=== PATIENT | male | born 1975 | race Caucasian/White ===

== ENCOUNTER → 2018-02-22 | Outpatient (CLI) | payer BC ==
--- NOTE | 2018-02-22 15:22 | RADIOLOGY REPORT (SQ) ---
EXAM DESCRIPTION: FOOT RIGHT COMPLETE COMPLETED DATE/TIME: 02/22/2018 3:13 pm REASON FOR STUDY: PAIN IN RIGHT TOE(S) M79.674 PAIN IN RIGHT TOE(S) COMPARISON: None. NUMBER OF VIEWS: Three views. TECHNIQUE: AP, lateral and oblique without weight bearing radiographic images acquired of the right foot. LIMITATIONS: None. FINDINGS: MINERALIZATION: Normal. BONES: No acute fracture or dislocation. No worrisome bone lesions. No significant osteophytes. JOINTS: No erosions. No bettie-articular osteopenia. No chondrocalcinosis. SOFT TISSUES: No swelling. No calcifications. OTHER: No other significant finding. IMPRESSION: NEGATIVE STUDY OF THE RIGHT FOOT. NO EXPLANATION FOR PAIN. TECHNICAL DOCUMENTATION: JOB ID: [id number] [employer]- All Rights Reserved Reading location - IP/workstation name: [email or web address]
== END ==
LOC: OD 15:00
PROVIDERS: ATTEND Family Medicine
DX: M79.674 Pain in right toe(s) (principal)

== ENCOUNTER 2019-03-03 23:30 | Emergency (ER) | payer BC ==
[2019-03-04] MEDS ORDERED: ASPIRIN 81 MG TABLET, CHEWABLE PO ONE (00:28)
--- NOTE | 2019-03-04 01:55 | RADIOLOGY REPORT (SQ) ---
EXAM DESCRIPTION: XR CHEST 2 VIEWS COMPLETED DATE/TME: 03/04/2019 00:00 CLINICAL HISTORY: 43 years, Male, cp COMPARISON: None. NUMBER OF VIEWS: Two TECHNIQUE: Two-view PA and lateral of the chest were obtained. LIMITATIONS: None. FINDINGS: Unremarkable cardiac and mediastinal silhouette. Heart size is normal. Lungs are clear without focal opacity, pneumothorax or pleural effusions. The visualized bones are within normal limits. IMPRESSION: No acute cardiopulmonary abnormalities. copyright 2010 [employer]- All Rights Reserved
[2019-03-04 02:19] LABS: ABSOLUTE BASOPHILS # (AUTO) 0.1 10^3/uL (0.0-0.2); ABSOLUTE EOSINOPHILS # (AUTO) 0.2 10^3/uL (0.0-0.6); ABSOLUTE LYMPHOCYTES (AUTO) 2.1 10^3/uL (0.5-4.7); ABSOLUTE MONOCYTES (AUTO) 0.7 10^3/uL (0.1-1.4); ABSOLUTE NEUT (AUTO) 3.8 10^3/uL (1.7-8.2); BASOPHILS % (AUTO) 0.9 % (0-2); EOSINOPHILS % (AUTO) 2.9 % (0-6); HEMATOCRIT 41.7 % (37.9-51.0); HEMOGLOBIN 14.1 g/dL (13.5-17.0); LYMPHOCYTES % (AUTO) 30.6 % (13-45); MEAN CORPUSCULAR HEMOGLOBIN 27.9 pg (27.0-33.4); MEAN CORPUSCULAR HGB CONC 33.7 g/dL (32.0-36.0); MEAN CORPUSCULAR VOLUME 83 fl (80-97); MONOCYTES % (AUTO) 10.2 % (3-13); PLATELET COUNT 286 10^3/uL (150-450); RED BLOOD COUNT 5.03 10^6/uL (4.35-5.55); RED CELL DISTRIBUTION WIDTH 13.6 % (11.5-14.0); SEGMENTED NEUTROPHILS % (AUTO) 55.4 % (42-78); TOTAL CELLS COUNTED % (AUTO) 100 %; WHITE BLOOD COUNT 6.9 10^3/uL (4.0-10.5)
--- NOTE | 2019-03-04 02:23 | ER Document Report ---
ED General - General Chief Complaint: Chest Pain Stated Complaint: CHEST PRESSURE Time Seen by Provider: 03/04/19 02:00 Primary Care Provider: MAXWELL KEYS DO [Primary Care Provider] - Follow up as needed Notes: Patient is a 43-year-old male that comes emergency department for chief complaint of pains in his chest, he states that it started 1 week ago when he had a run of palpitations, he states that since then he has noticed some developing soreness in the left side of his chest, this did not resolve and has progressed, tonight it was much more noticeable and he could not sleep. Pain is reproduced with movement. He denies nausea or vomiting, fever or chills. He has had a cough intermittently but this is nonproductive and he denies shortness of breath except when trying to take a deep breath he has some extra pain. Cough is resolving. He denies injury. 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 He denies any recent travel, swelling of the lower extremities, recent surgery. TRAVEL OUTSIDE OF THE [place] IN LAST 30 DAYS: No - Related Data Allergies/Adverse Reactions: Iodinated Contrast Media Allergy (Severe, Verified 01/27/19 09:32) Past Medical History - General Information source: Patient - Social History Smoking Status: Never Smoker Frequency of alcohol use: None Drug Abuse: None Lives with: Family Family History: Reviewed & Not Pertinent Patient has suicidal ideation: No Patient has homicidal ideation: No - Past Medical History Cardiac Medical History: Reports: Hx Heart Attack Denies: Hx Coronary Artery Disease, Hx Hypertension Pulmonary Medical History: Denies: Hx Asthma, Hx Bronchitis, Hx COPD, Hx Pneumonia Neurological Medical History: Denies: Hx Cerebrovascular Accident Musculoskeletal Medical History: Denies Hx Arthritis Past Surgical History: Reports: Other - Tumor removed from the bladder - Immunizations Hx Diphtheria, Pertussis, Tetanus Vaccination: Yes Review of Systems - Review of Systems Constitutional: No symptoms reported EENT: No symptoms reported Cardiovascular: See HPI Respiratory: See HPI Gastrointestinal: No symptoms reported Genitourinary: No symptoms reported Male Genitourinary: No symptoms reported Musculoskeletal: See HPI Skin: No symptoms reported Hematologic/Lymphatic: No symptoms reported Neurological/Psychological: No symptoms reported Physical Exam - Vital signs Vitals: Temp Pulse Resp BP Pulse Ox 97.9 F 71 18 139/96 H 97 03/03/19 23:53 03/03/19 23:53 03/03/19 23:53 03/03/19 23:53 03/03/19 23:53 - Notes Notes: GENERAL: Alert, interacts well. No acute distress. HEAD: Normocephalic, atraumatic. EYES: Pupils equal, round, and reactive to light. Extraocular movements intact. ENT: Oral mucosa moist, tongue midline. Oropharynx unremarkable. Airway patent. NECK: Full range of motion. Supple. Trachea midline. LUNGS: Clear to auscultation bilaterally, no wheezes, rales, or rhonchi. No respiratory distress. Tender over the left pectoral muscle especially over the lateral aspect. Very reproducible. Worse with range of motion of the arm and shoulder. No abnormal erythema, induration, fluctuance, crepitus. HEART: Regular rate and rhythm. No murmur ABDOMEN: Soft, non-tender. Non-distended. EXTREMITIES: Moves all 4 extremities spontaneously. No edema, normal radial and dorsalis pedis pulses bilaterally. No cyanosis. BACK: no cervical, thoracic, lumbar midline tenderness. No saddle anesthesia, normal distal neurovascular exam. Moves all extremities in full range of motion. NEUROLOGICAL: Alert and oriented x3. Normal speech. Cranial nerves II through XII grossly intact. PSYCH: Normal affect, normal mood. SKIN: Warm, dry, normal turgor. No rashes or lesions noted. Course - Re-evaluation Re-evalutation: Patient is alert and well-appearing. EKG unremarkable, chest x-ray unremarkable, CBC, chemistry, troponin all negative despite patient reporting symptoms for 1 week. Patient has obvious palpable tenderness over the left pectoral muscle extending towards the axilla, this is worsened with range of motion of the left arm and shoulder as well. In addition to this patient has some pain with deep breaths. Because of the pleuritic pain and occasional cough which is improving and almost resolved I suspect he has some component of pleurisy as well. He is not tachycardic, hypoxic, he has no lower extremity swelling, no reported risk factors for PE, PERC criteria negative. I did discuss the possibility of blood clot with patient, work-up with this was deferred. Patient is very pleased with his work-up, patient was given dexamethasone for suspected pleurisy component, he has Robaxin at home that he will be using already, discussed expectations, follow-up, and return precautions. Patient states understanding and agreement. Stable at time of discharge. - Vital Signs Vital signs: Temp Pulse Resp BP Pulse Ox 97.9 F 75 16 134/85 H 98 03/04/19 03:59 03/04/19 03:59 03/04/19 03:59 03/04/19 03:59 03/04/19 03:59 - Laboratory Result Diagrams: 03/04/19 02:00 03/04/19 02:00 Laboratory results interpreted by me: 03/04/19 02:00 Creatine Kinase 41 L - EKG Interpretation by Me Additional EKG results interpreted by me: EKG shows sinus rhythm at a rate of 79, QTc 432, normal axis, no T wave inversions or ST segment changes in consecutive leads. Discharge - Discharge Clinical Impression: Chest wall pain Chest pain Qualifiers: Chest pain type: unspecified Qualified Code(s): R07.9 - Chest pain, unspecified Condition: Stable Disposition: HOME, SELF-CARE Additional Instructions: Your work-up is reassuring and no concerning abnormality is seen. Your exam, symptoms, and work-up are most suggestive of both chest wall pain along your left pectoralis muscle and also probably pleurisy. You have been medicated for this, symptoms should gradually improve, apply heat to your chest wall on the left side, you can take [id number] anti- inflammatories and/or Robaxin as well. This should gradually resolve. Follow-up with primary care. Come back if you are worse including difficulty breathing, fever, passing out, severe worsening pain, or any other concerning symptoms. Forms: Return to Work Referrals: MAXWELL KEYS DO [Primary Care Provider] - Follow up as needed
[2019-03-04 02:39] LABS: ALBUMIN 4.3 g/dL (3.5-5.0); ALKALINE PHOSPHATASE 74 U/L (38-126); ANION GAP 10 (5-19); ASPARTATE AMINO TRANSFERASE 37 U/L (17-59); BILIRUBIN,DIRECT 0.1 mg/dL (0.0-0.4); BILIRUBIN,TOTAL 0.5 mg/dL (0.2-1.3); BLOOD UREA NITROGEN 14 mg/dL (7-20); CALCIUM 9.2 mg/dL (8.4-10.2); CARBON DIOXIDE 23 mmol/L (22-30); CHLORIDE 104 mmol/L (98-107); CREATINE KINASE 41 U/L (55-170); GLUCOSE 109 mg/dL (75-110); TOTAL PROTEIN 7.2 g/dL (6.3-8.2)
[2019-03-04 02:51] LABS: CREATINE KINASE MB 0.37 ng/mL (<4.55)
[2019-03-04 02:53] LABS: TROPONIN I < 0.012 ng/mL
[2019-03-04] MEDS ORDERED: ASPIRIN 81 MG TABLET, CHEWABLE ONE (03:21)
[2019-03-04] MEDS ORDERED: DEXAMETHASONE SOD PHOS INJ 10 MG/1 ML VIAL IM ONE (03:36)
[2019-03-04 04:01] VITALS: BP 134/85
--- NOTE | 2019-03-04 08:12 | EKG REPORT ---
SEVERITY:- NORMAL ECG - SINUS RHYTHM : Confirmed by: Tessie Pablo MD 04-Mar-2019 08:11:50
== END 2019-03-04 04:00 | disposition home or self-care (01) ==
LOC: ER 23:30
DX: R07.9 Chest pain, unspecified (principal); R07.89 Other chest pain; R05 Cough; I25.2 Old myocardial infarction
CPT/HCPCS: 93005; 36415; 82553; 82550; 85025; 80053; 84484; 71046; 93010; J1100